=== PATIENT | female | born 1990 | race Caucasian/White ===

== ENCOUNTER 2024-10-22 05:31 | Emergency (ER) | payer MEDICAID, SELFPAY ==
[2024-10-22 05:50] VITALS: BP 100/55; PULSE 62; RESP 18; TEMP 36.8; O2SAT 98
--- NOTE | 2024-10-22 06:30 | EDNOTE_ITS ---
Lower Extremity Injury RME/HPI General Chief Complaint: Extremity Injury, Lower Stated Complaint: Left leg Injury, slipped and fell back in July Time Seen by Provider: 10/22/24 06:12 Source: patient Arrival date/time: 10/22/24 05:31 34-year-old female with no known medical history presents to the emergency room with a chief complaint of left knee pain and leg pain x 3 months. Mode of arrival: ambulatory Limitations: no limitations Related Data Home Medications ?Medication ?Instructions ?Recorded ?Confirmed ascorbic acid (vitamin C) 500 mg 500 mg PO QDAY 06/11/19 tablet (Vitamin C) ibuprofen 800 mg tablet 800 mg PO BID PRN Pain 06/1106/11/19 Previous Rx's ?Medication ?Instructions ?Recorded hydrocodone 5 mg-acetaminophen 325 1 tab PO Q6H PRN pa in #30 tabs 06/12/19 mg tablet ([place]) Allergies Allergy/AdvReac Type Severity Reaction Status Date / Time No Known Allergies Allergy Verified 06/12/19 12:22 Review of Systems Review of Systems Systems Reviewed: All systems reviewed, normal except as documented Constitutional Constitutional: Reports system reviewed and no additional complaints, except as documented, Denies fatigue, Denies fever(s), Denies headache(s) and Denies weakness Eyes Eyes: Reports system reviewed and no additional complaints, except as documented, Denies blurry vision and Denies change in vision ENT Ears, Nose, Mouth, and Throat: Reports system reviewed and no additional complaints, except as documented, Denies otalgia, Denies headache(s), Denies nasal congestion, Denies throat swelling and Denies vertigo Cardiovascular Cardiovascular: Reports system reviewed and no additional complaints, except as documented, Denies chest pain, Denies dyspnea and Denies dyspnea on exertion Respiratory Respiratory: Reports system reviewed and no additional complaints, except as documented, Denies chest congestion, Denies cough, Denies dyspnea, Denies dyspnea on exertion and Denies wheezing Gastrointestinal Gastrointestinal: Reports system reviewed and no additional complaints, except as documented, Denies abdominal pain, Denies cramping, Denies nausea and Denies vomiting Genitourinary Genitourinary: Reports system reviewed and no additional complaints, except as documented Musculoskeletal Musculoskeletal: Reports system reviewed and no additional complaints, except as documented, Reports arthralgias and Denies back pain Integumentary/Breasts Skin/Breast: Reports system reviewed and no additional complaints, except as documented and Denies wounds Neurologic Neurologic: Reports system reviewed and no additional complaints, except as documented, Denies confusion, Denies headache(s), Denies lack of coordination, Denies vertigo and Denies weakness Psychiatric Psychiatric: Reports system reviewed and no additional complaints, except as documented, Denies anxiety, Denies confusion, Denies depression, Denies paranoia , Denies suicidal ideation and Denies tactile hallucinations Endocrine Endocrine: Reports system reviewed and no additional complaints, except as docum ented and Denies fatigue Hematologic/Lymphatic Hematologic/Lymphatic: Reports system reviewed and no additional complaints, except as documented and Denies lymphadenopathy Allergic/Immunologic Allergic/Immunologic: Reports system reviewed and no additional complaints, except as documented, Denies throat swelling, Denies urticaria and Denies wheezing ED Exam General Limitations: Present no limitations General appearance: Present alert and in no apparent distress Head Head exam: Present atraumatic Eye Eye exam: Present normal appearance, PERRL and EOMI ENT ENT exam: Present normal exam, normal oropharynx and mucous membranes moist Neck Neck exam: Present normal inspection, full ROM and trachea midline Chest Chest inspection: Present normal inspection and symmetric chest wall rise Respiratory Respiratory exam: Present normal lung sounds bilaterally Cardiovascular Cardiovascular exam: Present regular rate, normal rhythm and normal heart sounds Abdominal Exam Abdominal exam: Present soft and normal bowel sounds Extremities Exam Extremities exam: Present normal inspection and full ROM Expanded Lower Extremity Exam Hip/Pelvis exam: Present normal inspection Upper leg exam: Present normal inspection Knee exam: Present full ROM and tenderness; Absent swelling Lower leg exam: Present full ROM and tenderness; Absent swelling Ankle exam: Present normal inspection Foot/toe exam: Present normal inspection Back Exam Back exam: Present normal inspection and full ROM Neurological Exam Neurological exam: Present alert, oriented X3 and CN II-XII intact Psychiatric Psychiatric exam: Present normal affect and normal mood Skin Skin exam: Present warm, dry, intact and normal color Course Quality Measures none Orders Category Date Time Status Ibuprofen Tab [Motrin Tab] Med 10/22/24 06:21 Pending 600 mg PO X1 ONE Vital Signs Vital signs: Vital Signs Temperature 98.2 F 10/22/24 05:50 Pulse Rate 62 10/22/24 05:50 Respiratory Rate 18 10/22/24 05:50 Blood Pressure 100/55 L 10/22/24 05:50 Pulse Oximetry (%) 98 10/22/24 05:50 Oxygen Delivery Method Room Air 10/22/24 05:50 Extremity Injury, Lower MDM Narrative MDM Narrative:: 34-year-old female with no known medical history presents to the emergency room with a chief complaint of left knee pain and leg pain x 3 months. Patient is hemodynamically stable and in no apparent distress Physical examination shows pain to the patient's left knee. The patient is able to walk and has a normal steady gait. The patient states she was at the gym yesterday with no complaints. Patient states she is here today because this pain has been going on for the last 3 months and she has noticed mild swelling. Patient was educated to follow-up with her primary care provider as a referral to an MRI will be needed to assess for any ligament damage or tears An Mason wrap was given to the patient and pain medication Patient was discharged and educated to follow-up with primary care provider in the next 24 to 48 hours and return to the emergency room for any evidence of worsening signs or symptoms Patient data External records reviewed:: [facility] previous records Clinical information provided by:: patient Social determinants that could affect healthcare access:: none Patient has the following chronic illnesses:: No chronic illness How is presenting disease/condition affected by chronic disease/condition?: no chronic disease Evaluation data The following diagnostics were reviewed and interpreted by me:: lab results and radiology exam(s) Lab and/or radiology exams considered but not ordered:: Labs and radiology exams considered and ordered Interpretation Summary: N/A Medications / Prescriptions Medications or Prescriptions considered but not ordered:: Medication given Medication administrations:: Medication Administration History Ibuprofen (Ibuprofen Tab 600 Mg Tablet) 600 mg PO X1 ONE Stop: 10/22/24 06:22 Medication given Consultations Consultation(s) initiated? (list below): No Diagnosis Extremity Injury, Lower Differential Diagnosis: acute internal derangement of knee and other (Knee sprain) Most likely diagnosis given after review of the tests above:: Knee sprain Admission Indicated Admission indicated?: not indicated Admission Request Was there a request for admission?: No Disposition Plan Disposition Plan: Discharge Discharge Attestation Discharge Attestation: The patient and all family members were given an opportunity to ask questions and understood the discharge instructions. Discharge instructions specifically effects, indications for sooner follow up or return to the emergency department, and the expected course of current diagnosis. Patient condition: Stable Discharge Plan Plan Patient Disposition: HOME (Self Care) Discharge Disposition comment: Stable Prescriptions/Referrals Prescriptions/Med Rec: No Action ascorbic acid (vitamin C) [Vitamin C] 500 mg Tablet 500 mg PO QDAY ibuprofen 800 mg tablet 800 mg PO BID PRN (Reason: Pain) hydrocodone-acetaminophen [[place]] 5-325 mg tablet 1 tab PO Q6H MDD 4 PRN (Reason: pain) Qty: 30 0RF Problem List Clinical Impression: Knee sprain Patient/Caregiver Discharge Instructions Education Materials: ED MASON Wrap, ED Knee Sprain Additional Instructions: Please follow-up with your primary care provider in the next 24 to 48 hours You will need to follow-up with your PCP to assess for any ligament damage or tears. To assess for any ligament damage or tears you will need an outpatient MRI. Please keep your knee brace in place. For any evidence of worsening signs or symptoms return to the emergency room immediately Print Language: Luxembourgish Stand Alone Forms: [employer] Award Info., Work/School Release, Patient Portal Info Letter PA/NUT FEEDER Supervising Physician DANIEL/MIKHAIL Supervising Physician: Dr. Hope
== END 2024-10-22 06:29 | disposition home or self-care (01) ==
LOC: SERX 06:29
PROVIDERS: Emergency Provider Emergency Medicine
DX: S83.92XA Sprain of unspecified site of left knee, initial encounter (principal); W01.0XXA Fall on same level from slipping, tripping and stumbling without subsequent striking against object, initial encounter
CPT/HCPCS: 99281

== ENCOUNTER → 2024-10-27 | Outpatient (CLI) | payer MEDICAID, SELFPAY ==
--- NOTE | 2024-10-27 | XR_ITS ---
Examination:Left hip AP, lateral, AP pelvis 3 views Technique: Hip AP lateral, AP pelvis, 3 views Exam date and time:October 27, 2024 0714 hours INDICATIONS: Patient fell 3 months ago with injury to the left hip, left hip pain. FINDINGS: No left hip fracture or hip dislocation Right hip bones of the pelvis intact IMPRESSION: No acute hip or pelvic fracture.
--- NOTE | 2024-10-27 | XR_ITS ---
Examination: Knee, left , 3 views Technique: Knee AP, lateral, oblique 3 views Date and time of exam: October 27, 2024 0714 hours INDICATIONS: Patient fell 3 months ago with into the knee, knee pain. FINDINGS: Mild tricompartment osteoarthritis. No fracture or dislocation IMPRESSION: No fracture dislocation
== END | disposition home or self-care (01) ==
LOC: CDIM 06:51
DX: S79.912A Unspecified injury of left hip, initial encounter (principal); S89.92XA Unspecified injury of left lower leg, initial encounter; M17.12 Unilateral primary osteoarthritis, left knee
CPT/HCPCS: 73502; 73562